=== PATIENT | male | born 1955 | race Caucasian/White ===

== ENCOUNTER 2016-07-11 21:19 | Emergency (ER) | payer OTHER ==
[2016-07-11] MEDS ORDERED: KETOROLAC TROMETHAMINE 30 MG/1 ML VIAL IM ONE (21:21)
--- NOTE | 2016-07-11 21:23 | PDOC ---
History of Present Illness - General History Source: Patient, Significant Other, Old Records Exam Limitations: No Limitations - History of Present Illness Initial Comments: 07/11/16 21:25 The patient is a 61 year old male, accompanied by significant other, with no significant past medical history who presents to the ER via EMS with right knee pain for one week. The patient states that a week ago he was walking down the stairs and was distracted by an incoming phone call. He states he was on the second to last step and thought he had reached the bottom of the stairs. He landed on his straightened right leg. The patient notes that he did not fall. He states that he has been treating his knee pain with ice and 6 advil per day with no alleviation of symptoms. <Tahir Saravia - Last Filed: 07/11/16 21:26> <Jaime Recinos - Last Filed: 07/11/16 22:06> - General Chief Complaint: Pain, Acute Stated Complaint: RT KNEE PAIN Time Seen by Provider: 07/11/16 21:21 Past History <Tahir Saravia - Last Filed: 07/11/16 21:26> - Past Medical History Cardiac Disorders: Yes CVA: (ATRIAL ECTOPIC RHYTHM) - Psycho/Social/Smoking Cessation Hx Anxiety: Yes Suicidal Ideation: No Smoking Status: Yes Smoking History: Current some day smoker Have you smoked in the past 12 months: Yes Number of Cigarettes Smoked Daily: 20 'Breaking Loose' booklet given: 05/30/13 Hx Alcohol Use: Yes <Jaime Recinos - Last Filed: 07/11/16 22:06> - Past Medical History Allergies/Adverse Reactions: Allergies Allergy/AdvReac Type Severity Reaction Status Date / Time No Known Allergies Allergy Verified 11/17/12 19:29 Home Medications: Ambulatory Orders Celecoxib [Celebrex] 200 mg PO DAILY #30 capsule 07/11/16 Oxycodone HCl/Acetaminophen [Percocet 5-325 mg Tablet] 1 - 2 tab PO Q4H PRN #20 tablet MDD 6 07/11/16 Review of Systems - Review of Systems Able to Perform ROS?: Yes Musculoskeletal: Yes: Symptoms Reported, See HPI, Joint Pain <Tahir Saravia - Last Filed: 07/11/16 21:26> *Physical Exam - Physical Exam General Appearance: Yes: Nourished, Appropriately Dressed. No: Apparent Distress Neck: positive: Supple. negative: Tender Respiratory/Chest: positive: Lungs Clear. negative: Respiratory Distress Cardiovascular: positive: Regular Rhythm, Regular Rate Gastrointestinal/Abdominal: positive: Soft. negative: Tender Musculoskeletal: positive: Normal Inspection. negative: Vertebral Tenderness Extremity: negative: Normal Range of Motion (LTD ROM RT KNEE 2/2 PAIN. NO BONY TENDERNESS. ), Pedal Edema, Swelling Integumentary: positive: Normal Color Neurologic: positive: Fully Oriented, Alert, Normal Mood/Affect, Normal Response , Motor Strength 5/5 <Jaime Recinos - Last Filed: 07/11/16 22:06> ED Treatment Course - RADIOLOGY Radiology Studies Ordered: Category Date Time Status KNEE 3 POS-RIGHT [RAD] Stat Radiology 07/11/16 21:21 Ordered <Jaime Recinos - Last Filed: 07/11/16 22:06> *DC/Admit/Observation/Transfer - Attestations Scribe Attestion: 07/11/16 21:26 Documentation prepared by Tahir Saravia, acting as medical cost consultant for Jaime Recinos MD. <Tahir Saravia - Last Filed: 07/11/16 21:26> <Jaime Recinos - Last Filed: 07/11/16 22:06> Diagnosis at time of Disposition: Sprain of knee Qualifiers: Encounter type: initial encounter Involved ligament of knee: unspecified ligament Laterality: right Qualified Code(s): S83.91XA - Sprain of unspecified site of right knee, initial encounter - Discharge Dispostion Condition at time of disposition: Stable - Prescriptions Prescriptions: Celecoxib [Celebrex] 200 mg PO DAILY #30 capsule Oxycodone HCl/Acetaminophen [Percocet 5-325 mg Tablet] 1 - 2 tab PO Q4H PRN #20 tablet MDD 6 PRN Reason: Severe Pain - Patient Instructions Additional Instructions: ICE TO AREA ON AND OFF ELEVATION AMBULATION WITH KNEE IMMOBILIZER IF TOLERATED CELEBREX 1 TABLET A DAY FOR 10 DAYS PERCOCET 1-2 TABLETS EVERY 4 HOURS FOR SEVERE PAIN SEE YOUR ORTHOPEDIC DOCTOR ON FRIDAY RETURN IF WORSENING OR NEW SYMPTOMS
[2016-07-11] MEDS ORDERED: KETOROLAC TROMETHAMINE 30 MG/1 ML VIAL ONE (21:37)
[2016-07-11 21:43] VITALS: BP 165/85; PULSE 60; TEMP 98; BMI 33.4
[2016-07-11] MEDS ORDERED: OXYCODONE/APAP 5/325MG COMBO TABLET PO ONE (22:01)
[2016-07-11] MEDS ORDERED: OXYCODONE/APAP 5/325MG COMBO TABLET ONE (22:09)
== END 2016-07-11 23:24 | disposition home or self-care (01) ==
LOC: FER 21:19
PROC: 2W3RX1Z Immobilization of Left Lower Leg using Splint (ICD-10-PCS; principal; 2016-07-11)
PROC: 3E0233Z Introduction of Anti-inflammatory into Muscle, Percutaneous Approach (ICD-10-PCS; 2016-07-11)
DX: S83.91XA Sprain of unspecified site of right knee, initial encounter (principal); W10.9XXA Fall (on) (from) unspecified stairs and steps, initial encounter; Y93.89 Activity, other specified; Y92.9 Unspecified place or not applicable; I49.8 Other specified cardiac arrhythmias; F17.210 Nicotine dependence, cigarettes, uncomplicated; F41.9 Anxiety disorder, unspecified
CPT/HCPCS: 73562-TC-RT; 99282-25

== ENCOUNTER 2016-10-26 11:21 | Emergency (ER) | payer OTHER ==
[2016-10-26 11:45] VITALS: BP 123/86; PULSE 72; TEMP 98.1; BMI 31.6
--- NOTE | 2016-10-26 11:58 | PDOC ---
History of Present Illness - General Chief Complaint: Pain Stated Complaint: LEFT GREAT TOE PAIN Time Seen by Provider: 10/26/16 11:28 History Source: Patient Exam Limitations: No Limitations - History of Present Illness Initial Comments: 10/26/16 11:50 This is a 61 yo male with h/o HTN who presents c/o left great toe pain which was present on awakening this morning. He is having pain up to 7/10 when he touches or walks on the left great toe, but he has no pain at rest. The pain is non-radiating, feels tight and like a soreness. The left great toe is additionally swollen on the pad of the digit, and the patient feels like there is fluid in the area. He has not taken pain medications at home for this, and denies every having had these symptoms before. 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 He also notes having nail fungus on the toe in question, but this is unchanged from his baseline. He cut the toenail after the onset of pain this morning, but had not clipped his nails prior to that time for more than a week. He denies any drainage or pain around the cuticle. He endorses recent increased odor to his urine, but denies any thumb or left toe swelling/pain, fever, chills, nausea, vomiting, rash or other skin changes, or any additional symptoms. He recently started taking HCTZ, and also takes Lipitor. He denies personal history of diabetes, but does note a family history. Past History - Past Medical History Allergies/Adverse Reactions: Allergies Allergy/AdvReac Type Severity Reaction Status Date / Time No Known Allergies Allergy Verified 10/26/16 11:28 Home Medications: Ambulatory Orders Ascorbic Acid [Vitamin C] 500 mg PO DAILY tablet 10/21/16 Atorvastatin Calcium 20 mg PO DAILY tablet 10/21/16 Hydrochlorothiazide 25 mg PO DAILY tablet 10/21/16 Cholecalciferol (Vitamin D3) [Vitamin D3 -] 1,000 unit PO DAILY 10/26/16 Doxycycline Hyclate 100 mg PO BID #14 capsule 10/26/16 Multivits,Ca,Min/Iron/FA/Lycop [Centrum Men's Tablet] 1 each PO DAILY 10/26/16 Cardiac Disorders: Yes (ATRIAL ECTOPIC RHYTHM) CVA: (ATRIAL ECTOPIC RHYTHM) HTN: Yes Hypercholesterolemia: Yes - Psycho/Social/Smoking Cessation Hx Anxiety: Yes Suicidal Ideation: No Smoking Status: Yes Smoking History: Former smoker Have you smoked in the past 12 months: No Number of Cigarettes Smoked Daily: 20 If you are a former smoker, when did you quit?: 2016 Information on smoking cessation initiated: Yes 'Breaking Loose' booklet given: 05/30/13 Hx Alcohol Use: Yes Drug/Substance Use Hx: No Substance Use Type: None Review of Systems - Review of Systems Able to Perform ROS?: Yes Is the patient limited [place]an proficient: Yes Constitutional: No: Chills, Fever, Unexplained wgt Loss HEENTM: No: Nose Congestion, Throat Pain Respiratory: No: Cough, Shortness of Breath Cardiac (ROS): No: Chest Pain, Palpitations ABD/GI: No: Constipated, Diarrhea, Nausea, Vomiting : No: Burning, Dysuria Musculoskeletal: Yes: Other (left great toe pain). No: Back Pain, Neck Pain Integumentary: No: Bruising, Rash Neurological: No: Headache, Numbness, Tingling, Weakness, Dizziness Endocrine: No: Unexplained Weight Gain, Unexplained Weight Loss *Physical Exam - Vital Signs Last Vital Signs Temp Pulse Resp BP Pulse Ox 98.1 F 72 15 123/86 98 10/26/16 11:22 10/26/16 11:22 10/26/16 11:22 10/26/16 11:22 10/26/16 11:22 - Physical Exam General Appearance: Yes: Nourished. No: Apparent Distress HEENT: positive: EOMI, Normal Voice, Hearing Grossly Normal. negative: Scleral Icterus (R), Scleral Icterus (L), Nasal Congestion Neck: positive: Trachea midline, Supple. negative: Tender, Rigid Respiratory/Chest: positive: Lungs Clear, Normal Breath Sounds. negative: Respiratory Distress, Crackles, Rhonchi, Stridor, Wheezing Cardiovascular: positive: Regular Rhythm, Regular Rate. negative: Murmur Vascular Pulses: Dorsalis-Pedis (R): 2+, Doralis-Pedis (L): 2+ Gastrointestinal/Abdominal: positive: Normal Bowel Sounds, Soft. negative: Tender, Organomegaly, Pulsatile Mass, Guarding Musculoskeletal: positive: Decreased Range of Motion. negative: Vertebral Tenderness Extremity: positive: Normal Capillary Refill, Other (left first digit edema overlying the entire distal phalanx worse on the medial aspect, tenderness to palpation along the medial aspect of the left distal phalanx, left first digit onychomycosis, but no lesions, no drainage, no streaking erythema). negative: Cyanosis Integumentary: positive: Dry, Warm. negative: Bruising Neurologic: positive: clinic physician director II-XII NML intact, Fully Oriented, Alert, Normal Mood/ Affect, Normal Response, Motor Strength /5 Medical Decision Making - Medical Decision Making 10/26/16 12:16 61 yo male who started taking HCTZ one month ago, now with first-onset left great toe pain which started last night. Exam notable for tenderness to palpation throughout the digit, worse overlying the medial aspect of the IP joint. Most likely this is d/t infection, with likely entry point at the nail bed. Less likely but considered on the ddx is gout. Symptoms do not involve the MTP joint, which is atypical for gout. Toe x-ray ordered to evaluate for possible foreign body, which is negative for FB or other acute pathology. No e/o gouty arthritic changes on x-ray. Blood glucose to evaluate for possibility of diabetes, BG is within normal limits. The patient is prescribed Doxycycline for toe infection, discharged home. Will elevate foot, take Tylenol, follow up as needed. *DC/Admit/Observation/Transfer Diagnosis at time of Disposition: Toe infection - Discharge Dispostion Disposition: HOME Condition at time of disposition: Good Admit: No - Prescriptions Prescriptions: Doxycycline Hyclate 100 mg PO BID #14 capsule - Referrals Referrals: Bar Baltazar MD [Primary Care Provider] - - Patient Instructions Printed Discharge Instructions: DI for Cellulitis -- Adult Additional Instructions: You were seen today for toe pain. You had an x-ray which showed no foreign bodies or other concerns. We are prescribing antibiotics for a 7 day course. Please elevate the foot, and take Tylenol as well. Follow up with your primary care provider if this worsens, or come back to the ED for any further emergency concerns. - Attestations Physician Attestion: 10/26/16 12:50 I, Dr. Sarai Cagle, attest that this document has been prepared under my direction and personally reviewed by me in its entirety. I further attest, that it accurately reflects all work, treatment, procedures and medical decision -making performed by me.
[2016-10-26] MEDS ORDERED: HEMOQUE TEST 1 EACH EACH ONE ×2 (12:52→12:53)
--- NOTE | 2016-10-26 13:53 | PDOC ---
Attending Attestation - Resident Resident Name: CagleSarai - ED Attending Attestation I have performed the following: I have examined & evaluated the patient, The case was reviewed & discussed with the resident, I agree w/resident's findings & plan - HPI HPI: 10/26/16 13:50 red swollen toe for a couple of days, great toe no fever no trauma no hx of gout - Physicial Exam PE: 10/26/16 13:50 left great toe with distal redness and a fungal nail no ingrown toenail or onychia MTP and IP joint both normal rom and no redness or pain on rom distal to IP joint there is redness and tenderness no abscess or fluctuance no visible or palpable FB pulses are 2+ PT and 1+ DP cap refill 2-3 seconds skin intact - Medical Decision Making 10/26/16 13:52 xray no FB Impression: Redness of the distal left great toe. No joint involvement. Positive fungal nail, but nail appears otherwise intact without focal infection around the nail. Patient does a lot of things barefoot, and I suspect he may have scratched the skin which is not visible. He will be placed on an antibiotic and advised to take Tylenol and elevate the foot. He will follow-up with his primary care physician in the next few days if the symptoms are not resolving.
== END 2016-10-26 13:54 | disposition home or self-care (01) ==
LOC: FER 11:21
DX: L08.9 Local infection of the skin and subcutaneous tissue, unspecified (principal); Z87.891 Personal history of nicotine dependence; I10 Essential (primary) hypertension; I49.8 Other specified cardiac arrhythmias; E78.00 Pure hypercholesterolemia, unspecified
CPT/HCPCS: 73660-TC; 99282-25

== ENCOUNTER 2024-10-22 15:13 | Emergency (ER) | payer OTHER, MEDICARE ==
[2024-10-22 15:28] VITALS: BP 141/86; PULSE 67; RESP 18; TEMP 97.3; BMI 26.9
[2024-10-22] MEDS ORDERED: KETOROLAC TROMETHAMINE 15 MG/ML VIAL ONE ×2 (15:47→18:49)
[2024-10-22] MEDS ORDERED: LIDOCAINE 5% TOPICAL PATCH ONE (15:59)
[2024-10-22] MEDS ORDERED: METHOCARBAMOL 500 MG TABLET ONE (15:59)
[2024-10-22] MEDS: METHOCARBAMOL 500 MG TABLET PO ONE (16:00)
[2024-10-22] MEDS: KETOROLAC TROMETHAMINE 15 MG/ML VIAL IVPUSH ONE ×2 (16:05→18:54)
[2024-10-22] MEDS: SODIUM CHLORIDE 0.9% 500 ML INFUS.BAG IV ONE (16:05)
[2024-10-22] MEDS: LIDOCAINE 5% TOPICAL PATCH TP ONE (16:10)
[2024-10-22 16:21] LABS: MCHC 34.3 g/dl (32.3-36.5); MEAN CELL VOLUME 90.2 fl (79.0-92.2); MEAN PLT VOLUME 10.9 fl (9.4-12.4); RDW 13.0 % (12.2-16.4)
[2024-10-22 16:30] LABS: INR 1.0 (0.83-1.09); PROTHROMBIN TIME (PATIENT) 11.1 SEC (9.7-13.0)
[2024-10-22 16:33] LABS: ACTIVATED PTT 30.3 SECONDS (25.2-36.5)
[2024-10-22 16:39] LABS: ALK PHOS 62.0 U/L (45-117); CO2 26.0 mmol/L (21-32); CREATININE 0.8 mg/dl (0.6-1.3); GLUCOSE,RANDOM 106.0 mg/dl (74-106); SGOT/AST 20.0 U/L (15-37); SGPT/ALT 18.0 U/L (7-52); TOT PROT 7.3 g/dl (6.4-8.2)
[2024-10-22] MEDS ORDERED: ACETAMINOPHEN INJECTION 100 ML ONE (18:49)
[2024-10-22] MEDS: ACETAMINOPHEN 1000 MG/100 ML BAG IVPB ONE (18:54)
[2024-10-22 20:00] LABS: HCV DIAGNOSTIC IN-HOUSE W/RFLX NON-REACTIVE (NONREACTIVE); HIV INTERPRETATION NEGATIVE (NEGATIVE)
[2024-10-22] MEDS ORDERED: LIDOCAINE PATCH REMOVAL MC SCH (22:00)
== END 2024-10-22 19:20 | disposition home or self-care (01) ==
LOC: FER 15:13
PROC: 3E033NZ Introduction of Analgesics, Hypnotics, Sedatives into Peripheral Vein, Percutaneous Approach (ICD-10-PCS; principal; 2024-10-22)
PROC: 3E033NZ Introduction of Analgesics, Hypnotics, Sedatives into Peripheral Vein, Percutaneous Approach (ICD-10-PCS; 2024-10-22)
PROC: 3E0333Z Introduction of Anti-inflammatory into Peripheral Vein, Percutaneous Approach (ICD-10-PCS; 2024-10-22)
PROC: 3E0333Z Introduction of Anti-inflammatory into Peripheral Vein, Percutaneous Approach (ICD-10-PCS; 2024-10-22)
DX: N13.2 Hydronephrosis with renal and ureteral calculous obstruction (principal); R10.9 Unspecified abdominal pain; M54.50 Low back pain, unspecified; X50.1XXA Overexertion from prolonged static or awkward postures, initial encounter; Y99.0 Civilian activity done for income or pay
CPT/HCPCS: 36415; 72131-TC; 74176-TC; 80053; 81003; 85025; 85610; 85730; 86803; 87086; 87389; 99285-25